=== PATIENT | female | born 2000 | race Caucasian/White ===

== ENCOUNTER 2019-12-12 14:46 | Emergency (ER) | payer MEDICAID ==
[~2019-12-12] VITALS: Ht 170.2 cm; Wt 118.0 kg
[~2019-12-12 14:46] MED LIST: FLUO10CA25
[2019-12-12 14:51] VITALS: BP 131/80
[2019-12-12] MEDS ORDERED: IBUPROFEN 600MG TABLET PO ONE (15:15)
== END 2019-12-12 16:08 | disposition home or self-care (01) ==
LOC: ER 14:46
DX: S01.01XA Laceration without foreign body of scalp, initial encounter (principal); F12.10 Cannabis abuse, uncomplicated; Z90.49 Acquired absence of other specified parts of digestive tract; Y04.0XXA Assault by unarmed brawl or fight, initial encounter; Y93.89 Activity, other specified; Y92.89 Other specified places as the place of occurrence of the external cause; Y99.8 Other external cause status
CPT/HCPCS: 12001; 99282

== ENCOUNTER 2019-12-22 18:15 | Emergency (ER) | payer MEDICAID ==
[~2019-12-22] VITALS: Ht 170.2 cm; Wt 118.0 kg
[2019-12-22 20:12] VITALS: BP 125/83
== END 2019-12-22 20:15 | disposition home or self-care (01) ==
LOC: ER 18:15
DX: Z48.02 Encounter for removal of sutures (principal)
CPT/HCPCS: 99281

== ENCOUNTER 2021-11-10 23:20 | Emergency (ER) | payer MEDICAID ==
[~2021-11-10] VITALS: Ht 170.2 cm; Wt 136.6 kg
[2021-11-10 23:51] VITALS: BP 139/93
[2021-11-11] MEDS ORDERED: VISCOUS LIDOCAINE 2% 15 ML UDC MM STA (04:13)
[2021-11-11] MEDS ORDERED: VISCOUS LIDOCAINE 2% 15 ML UDC MM NR (05:00)
[2021-11-11] MEDS ORDERED: AZIT250T12 MT (07:40)
[2021-11-11] MEDS ORDERED: NAPR-681 PO (07:40)
[2021-11-11] MEDS ORDERED: CIPHCO LEFT EAR (07:40)
== END 2021-11-11 08:03 | disposition home or self-care (01) ==
LOC: ER 23:20
DX: H66.91 Otitis media, unspecified, right ear (principal); H60.92 Unspecified otitis externa, left ear; T16.2XXA Foreign body in left ear, initial encounter; F32.9 Major depressive disorder, single episode, unspecified; X58.XXXA Exposure to other specified factors, initial encounter; Y93.9 Activity, unspecified; Y92.9 Unspecified place or not applicable
CPT/HCPCS: 99281; Z7610